=== PATIENT | female | born 1965 | race Caucasian/White ===

== ENCOUNTER → 2023-06-18 13:47 | Outpatient (BNVA) | payer OTHER, SELFPAY | PROVIDERS: Visit Provider Urology ==

== ENCOUNTER → 2023-06-18 18:05 | Outpatient (CLI) | payer OTHER, SELFPAY ==
--- NOTE | 2023-06-18 14:15 | DI.RAD_ITS ---
Exam(s) XR ABDOMEN FLAT PLATE EXAM: 2D digital imaging was performed. CLINICAL HISTORY: Lt ureteral stone progress, N20.1. COMPARISON: CT CT RENAL COLIC from 06/11/2023 TECHNIQUE: Supine views of the abdomen performed. One image was obtained. FINDINGS: BOWEL GAS PATTERN: Nondistended. There is a moderate amount of stool in the colon. CALCIFICATIONS: There is a 1.2 cm calcification to the left of the spine which corresponds to the pro ximal left ureteral calcification. It is at the level of the L3 vertebral body. This is unchanged c ompared to the prior examination. Phleboliths are seen in the pelvis. There is a tiny calcification s seen in the superior pole of the left kidney overlying the left 12th rib. No other urinary tract c alculi are identified. OSSEOUS STRUCTURES: Degenerative changes are seen in the lumbar spine. OTHER FINDINGS: None. IMPRESSION: 1. Moderate amount of stool in the colon. 2. Stable position of the left proximal ureteral stone. DATA REPOSITORY: RADIATION DOSE DELIVERED:
== END ==
PROVIDERS: Visit Provider Urology
DX: N20.1 Calculus of ureter (principal)
CPT/HCPCS: 99204; 74018

== ENCOUNTER → 2023-07-02 11:08 | Outpatient (BNVA) | payer OTHER, SELFPAY | PROVIDERS: Visit Provider Nurse Practitioner Gerontology ==

== ENCOUNTER → 2023-07-02 12:49 | Outpatient (CLI) | payer OTHER, SELFPAY ==
--- NOTE | 2023-07-02 12:00 | DI.RAD_ITS ---
Exam(s) XR ABDOMEN FLAT PLATE EXAM: 2D digital imaging was performed. CLINICAL HISTORY: monitor known ureteral stone N20.1 CALCULUS OF URETER. COMPARISON: CT CT RENAL COLIC from 06/11/2023 CR XR ABDOMEN FLAT PLATE from 06/18/2023 TECHNIQUE: Supine views of the abdomen performed. FINDINGS: BOWEL GAS PATTERN: Nondistended. Moderate to increased quantity of stool. CALCIFICATIONS: Previously noted stone at the upper left ureter no longer visible. Tiny stone visibl e upper pole left kidney. OSSEOUS STRUCTURES: Degenerative changes in the lumbar spine. Old left L3 transverse process fractur e. IMPRESSION: 1. Moderate to increased quantity of stool. 2. Tiny stone upper pole left kidney. Previously noted stone in proximal left ureter no longer visib le. DATA REPOSITORY: RADIATION DOSE DELIVERED:
== END ==
PROVIDERS: Visit Provider Urology
DX: N20.1 Calculus of ureter (principal)
CPT/HCPCS: 81003; 99213; 74018

== ENCOUNTER 2023-07-09 07:07 | Day surgery (SDC) | payer OTHER, SELFPAY ==
[2023-07-09] VITALS (11 sets, daily range): BP systolic 117–138; BP diastolic 44–73; PULSE 59–75; RESP 14–18; TEMP 36.4–36.7; O2SAT 95–98; BMI 20.6
--- NOTE | 2023-07-09 07:15 | DI.RAD_ITS ---
Exam(s) XR RETROGRADE IN OR EXAM: XR RETROGRADE IN OR CLINICAL HISTORY: left ureteral stone TECHNIQUE: 2D and realtime digital imaging was performed. CONTRAST MATERIAL: Refer to procedure report. COMPARISON: CT CT RENAL COLIC from 06/11/2023 FINDINGS: Fluoroscopy was provided for Dr. Burnette during the performance of a retrograde evaluation of the [place] l collecting system. Please refer to the procedure report for complete details. Ka,r=5.5 mGy IMPRESSION: RADIATION DOSE DELIVERED: 0.0 2414.4 0
--- NOTE | 2023-07-09 07:34 | HPE_ITS ---
Date of service: 07/09/23 Time of Service: 07:35 Assessment and Plan Assessment and plan (1) Left ureteral stone: Status: Acute Assessment and plan: We will perform cystoscopy and left retrograde pyelogram to see where her stone is located. We will then plan to do ureteroscopy and holmium laser lithotripsyof her ureteral stone. we will also address the nonobstructing renal stone if technically feasible. History of Present Illness History of Present Illness Chief Complaint: Left ureteral stone Narrative: This is a 58-year-old woman who is referred by the emergency department at [facility]. She was seen in an urgent care setting when she developed moustapha ss hematuria, nausea and some back discomfort. The patient thought she might have a urinary tract infection as she had to UTIs the previous year. The providers in the urgent care recommended she go to the emergency department. During her evaluation, her urine showed no sign of infection. She had a CT scan which is described as showing a 7 mm proximal left ureteral stone with mild hydronephrosis and a nonobstructing 4 mm stone in the left kidney. No stones were described on the right. She was treated conservatively, but has been unable to pass her stone. She has had intermittent symptoms of flank pain and nausea. She had another visit to the ED at [facility] this weekend for worsening pain. She presents now for stone manipulation. Review of Systems Narrative: No fevers or chills No vision change or dysphasia No diabetes or thyroid No shortness of breath, cough or hemoptysis No chest pain or palpitations No nausea, vomiting, hepatitis, ulcers, jaundice, diarrhea or constipation No seizures, strokes or peripheral neuropathy No bleeding disorders or anemia No gout PFSH All Active Problems Left ureteral stone (Acute) Unspecified convulsions (Acute) Medical History Generalized intra-abdominal and pelvic swelling, mass and lump Seizure Syncope and collapse Lateral epicondylitis Candidal vulvovaginitis Surgical History (Updated 07/09/23 @ 07:26 by Pipo Doyle) Hx of tonsillectomy H/O umbilical hernia repair Social History Smoking/Tobacco Use Status: Never Smoking risk assessment performed?: Yes Alcohol Intake: never Drug use: Never Substance use type: does not use Housing: house Do you feel safe at home: Yes Do you feel safe in your relationship?: Yes Meds Allergies and Home Medications Allergies Allergy/AdvReac Type Severity Reaction Status Date / Time lamotrigine Allergy unknown Verified 07/09/23 07:24 Penicillins Allergy unknown Verified 07/09/23 07:24 Home Medications Medication Instructions Recorded Confirmed Type cholecalciferol (vitamin D3) 25 25 mcg PO DAILY 03/11/20 07/09/23 History mcg (1,000 unit) capsule ibuprofen 200 mg capsule (Motrin 400 mg PO Q6H PRN 03/11/20 07/09/23 History IB) levetiracetam 1,000 mg tablet 2,000 mg PO BID 03/11/20 07/09/23 History carbamazepine 100 mg 100 mg PO DAILY 06/13/23 07/09/23 History capsule,extended release [id number] elderberry fruit 350 mg capsule 350 mg PO DAILY 06/18/23 07/09/23 History tamsulosin 0.4 mg capsule (Flomax) 0.4 mg PO DAILY #7 caps 07/03/23 07/09/23 Rx tramadol 50 mg tablet 50 mg PO Q6H PRN pain #12 tabs 07/06/23 07/09/23 Rx Exam Const General: cooperative Neck Neck: supple Resp Effort & Inspection: normal respiratory effort Auscultation: clear to auscultation bilaterally Cardio Rate: regular rate Rhythm: regular rhythm GI Palpation: soft and no masses Neuro General: patient alert, patient awake and patient oriented x3 Results Last Vital Signs Temp 36.7 C 07/09/23 07:26 Pulse 71 07/09/23 07:26 Resp 16 07/09/23 07:26 BP 130/58 L 07/09/23 07:26 Pulse Ox 98 07/09/23 07:26 Time Spent Time spent with Patient: <40 minutes Time was spent: other
--- NOTE | 2023-07-09 07:44 | W.ANESPRE ---
General Info Date of Service Date Performed: 07/09/23 Height: 5 ft 3 in Weight: 52.9 kg Body Mass Index (BMI): 20.6 Surgical Procedure: Operation Date: 07/09/23 09:10 Proposed Procedure Side Surgeon p Cystoscopy/Laser/Retrograde/Ureteroscopy/ Stone Manipulation/ ? Stent Placement Left Abdirashid Burnette MD Pre-Op Diagnosis Post-Op Diagnosis LEFT URETERAL STONE Meds Allergies and Home Medications Allergies Allergy/AdvReac Type Severity Reaction Status Date / Time lamotrigine Allergy unknown Verified 07/09/23 07:24 Penicillins Allergy unknown Verified 07/09/23 07:24 Home Medication Medication Instructions Recorded cholecalciferol (vitamin D3) 25 25 mcg PO DAILY 03/11/20 mcg (1,000 unit) capsule ibuprofen 200 mg capsule (Motrin 400 mg PO Q6H PRN 03/11/20 IB) levetiracetam 1,000 mg tablet 2,000 mg PO BID 03/11/20 carbamazepine 100 mg 100 mg PO DAILY 06/13/23 capsule,extended release [id number] elderberry fruit 350 mg capsule 350 mg PO DAILY 06/18/23 tamsulosin 0.4 mg capsule (Flomax) 0.4 mg PO DAILY #7 caps 07/03/23 tramadol 50 mg tablet 50 mg PO Q6H PRN pain #12 tabs 07/06/23 Current Visit Medications: Current Medications Generic Name Dose Route Start Last Admin Trade Name Freq PRN Reason Stop Dose Admin Ringer's Solution 1,000 mls @ 80 mls/hr 07/09/23 06:00 IV 07/09/23 23:59 INFUSION BHAVANA Ciprofloxacin 400 mg in 200 mls @ 200 mls/hr 07/09/23 06:00 Cipro I.V. IVPB 07/09/23 23:59 PREOP BHAVANA IV Miscellaneous Supplies 1 each 07/09/23 06:00 Iv Access IV 07/09/23 23:59 DIRECTED BHAVANA Sodium Chloride 0 ml 07/09/23 06:00 Normal Saline Flush 10 Ml Syr IV 07/09/23 23:59 PRN PRN Sodium Chloride 0 ml 07/09/23 06:00 Normal Saline 10 Ml Vial IJ 07/09/23 23:59 DIRECTED PRN Sterile Water 0 ml 07/09/23 06:00 Water,Injection,Sterile 10 Ml Vial IJ 07/09/23 23:59 DIRECTED PRN PFSH Active Problems Active Problems: Problem Status Onset Code Left ureteral stone N20.1 Unspecified convulsions R56.9 Medical History Medical History Generalized intra-abdominal and pelvic swelling, mass and lump Seizure Syncope and collapse Lateral epicondylitis Candidal vulvovaginitis Surgical History Surgical History (Updated 07/09/23 @ 07:26 by Pipo Doyle) Hx of tonsillectomy H/O umbilical hernia repair Tobacco Smoking/Tobacco Use Status: Never Alcohol Alcohol Intake: never Substance Use Substance use: Never Substance use type: does not use Vital Signs and Lab Results Vital Signs Most Recent Vital Signs in EMR: Most Recent Vital Signs Temp Pulse Resp BP Pulse Ox 36.7 C 71 16 130/58 L 98 07/09/23 07:26 07/09/23 07:26 07/09/23 07:26 07/09/23 07:26 07/09/23 07:26 Lab Results Blood Type / Crossmatch: No Data to Display Complete Blood Count: No Data to Display Complete Metabolic Panel: No Data to Display Liver Function Panel: No Data to Display Coagulation Panel: No Data to Display Cardiac Panel: No Data to Display Arterial Blood Gas: No Data to Display Venous Blood Gas: No Data to Display Pancreas Panel: No Data to Display Thyroid Panel: No Data to Display Infectious Disease: No Data to Display Blood Cultures: No Data to Display Toxicology Panel: No Data to Display Anesthesia Assessment and Plan Anesthesia History Personal History: No History of Anesthesia Complications Family History: No Family History of Anesthesia Complications Exercise Tolerance Exercise Tolerance: Metabolic Equivalents>4 Pertinent Negatives Pertinent Negatives: No Symptoms of GERD, No Major Cardiovascular Symptoms or Complaints and No Major Pulmonary Symptoms or Complaints Cardiac & Pulmonary Exam Cardiac Exam: Normal S1/S2 Heart Sounds Pulmonary Exam: Clear Bilateral Breath Sounds Implantable Cardiac Device Does patient have a Pacemaker or an ICD?: No Airway Exam Known Difficult Airway: No Mallampati Class: 2 Mouth Opening: Normal (> 3cm) Thyromental Distance: Less than 3 cm Neck Range of Motion: Full ROM Neck Circumference: Normal Teeth Condition: Normal Dentition ASA Classification ASA Score: ASA 2 Emergency Case?: No NPO Status NPO Status: NPO Clears >2 hours, Solids >8 hours Anesthesia Plan Resuscitation Status: Full Code Anesthesia Technique: General Anesthesia Airway Planned: LMA Monitors Used: Standard Monitors
[2023-07-09] MEDS: Lactated Ringers 1,000 ML 80 ML IV (07:50)
[2023-07-09] MEDS: CIPROFLOXACIN 400 MG/200 ML BAG 200 MG IVPB (07:51)
[2023-07-09] MEDS: Omnipaque 300 MG/ML 50 ML BTL (08:47)
[2023-07-09] MEDS: Lidocaine 2% Jelly 11 ML SYR (08:47)
--- NOTE | 2023-07-09 09:15 | W.PM.DSUDISC ---
Date of service: 07/09/23 Time of Service: 09:15 Discharge Plan Disposition Patient Disposition: Home Discharge Details Reason For Visit: ureteroscopy Attending Provider: Abdirashid Burnette Primary Care Provider: Maximo Brunner Home Meds and New Rx's Prescriptions: No Action elderberry fruit 350 mg capsule 350 mg PO DAILY tamsulosin [Flomax] 0.4 mg capsule 0.4 mg PO DAILY Qty: 7 0RF tramadol 50 mg tablet 50 mg PO Q6H PRN (Reason: pain) Qty: 12 0RF Rx Instructions: may take along with NSAIDS/Tylenol levetiracetam 1,000 mg tablet 2,000 mg PO BID ibuprofen [Motrin IB] 200 mg capsule 400 mg PO Q6H PRN cholecalciferol (vitamin D3) 25 mcg (1,000 unit) capsule 25 mcg PO DAILY carbamazepine 100 mg capsule, ER multiphase 12 hr 100 mg PO DAILY Discharge Instructions Additional Instructions: no need to strain urine You have a stent in the left ureter and there is a string attached to the stent. While the stent is in place, it is not unusual to see blood in the urine, have discomfort when you urinate and urinate more frequently. followup late this week/early next week for stent removal followup appt 6 to 8 weeks with renal US to be done in my office Discharge Orders Discharge Orders: Discharge Order (Routine); Ordered 07/09/23 Ordered By: Abdirashid Burnette DS: Diagnosis Discharge Diagnosis (1) Left ureteral stone: Status: Acute
--- NOTE | 2023-07-09 09:19 | W.PM.OP ---
Date of service: 07/09/23 Time of Service: 09:19 Operative Note Operative Note DATE OF PROCEDURE: 07/09/23 PRE-OP DIAGNOSIS: Left ureteral stone POST-OP DIAGNOSIS: same left renal stone PROCEDURE: cystoscopy, left retrograde pyelogram, left semirigid ureteroscopy with ureteral stone extraction, left flexible ureteroscopy with renal stone extraction, insert left ureteral stent SURGEON: Abdirashid Burnette ANESTHESIA TYPE: Local By Surgeon and General LMA/ETT Refer to Anesthesia Record ESTIMATED BLOOD LOSS: 5 PATHOLOGY: other (left ureteral and left renal stone for chemical analysis) COMPLICATIONS: None Patient was transported to: PACU Patient's condition: stable Implants: 6 Romanian by 22 to 30 cm left ureteral stent Indications: This is a 58-year-old woman who presented to an outside emergency department with left-sided renal colic. She was found to have a 7 mm left proximal ureteral stone. She was treated with conservative management but was unable to pass her stone. In fact, she had recurrent episodes of renal colic in the past week. She presents for stone manipulation. Findings: left ureteral stone had migrated distally in ureter left renal stone in upper pole calyx Procedure Description: The patient was given preoperative IV antibiotics and brought to the operating room on 07/09/2023. After successful induction of general anesthesia, she was placed in the dorsal lithotomy position. Her genitalia was prepped and draped sterilely. 2% Xylocaine jelly was instilled into the urethra. A 22 Romanian rigid cystoscope was passed through the urethra into the bladder. The bladder was inspected with a 30 degree lens. Both ureteral orifices appeared normal with no blood coming from either side. The left orifice was cannulated with a 5 Romanian access catheter. Retrograde pyelogram was obtained by injecting Omnipaque through the access catheter under fluoroscopic guidance. There appeared to be a filling defect in the left distal ureter below the pelvic brim. I then passed a guidewire through the lumen of the access catheter and advanced the wire up the remainder of the ureter. The access catheter was removed leaving the wire in place. The semirigid ureteroscope was then passed through the urethra and advanced up the left ureter. The distal ureteral stone was visualized and grasped in a Jen stone basket. The stone was then removed in its entirety. Based on her previous imaging studies, we already knew that she had another stone up in the left kidney. We passed the dual-lumen catheter over her indwelling wire and positioned a second wire. We chose one of the wires as a working wire and the other as a safety wire. We advanced a ureteral access sheath over the working wire leaving the safety wire in place. The flexible ureteroscope was then passed through the lumen of the access sheath and each of the calyces were inspected. A small stone was seen in the upper pole calyx. The stone was grasped in a 0 tip stone basket and removed in its entirety. Both stone fragments were sent to pathology for chemical analysis. The ureteral access sheath was removed. We then passed a 6 Romanian stent over the safety wire. The proximal end of the stent was curled in the renal pelvis and the distal end of the stent was curled in the bladder. The positioning of the stent was confirmed both fluoroscopically and cystoscopically. We left a safety string attached to the end of the stent. The string was brought through the patient's urethra and tucked into the vaginal cavity. The patient tolerated this procedure well with no complications. She was taken to the recovery room in stable condition.
[2023-07-09] MEDS: fentaNYL 100 MCG/2 ML VIAL IVP ×2 (09:34→09:40)
[2023-07-09] MEDS: Phenazopyridine 200 MG TAB PO (09:48)
[2023-07-09] MEDS: oxyCODONE 5 MG TAB PO (10:54)
--- NOTE | 2023-07-09 11:01 | W.ANESPOSTOP ---
Postoperative Evaluation Date, Time and Location Date Performed: 07/09/23 Time Performed: 11:01 Patient Location: Day Surgery Unit Vital Signs Most Recent Imported Vital Signs: Most Recent Vital Signs Temp Pulse Resp BP Pulse Ox 36.5 C 72 16 132/60 96 07/09/23 10:41 07/09/23 10:41 07/09/23 10:41 07/09/23 10:41 07/09/23 10:41 Pain Score Most Recent Pain Score: Most Recent Pain Score Pain Level 4 07/09/23 10:41 Assessment Mental Status: Awake (Alert & Oriented to Patient Baseline) Airway and Respiratory Function: Patent airway with normal (patient baseline) respiratory exam Cardiovascular Function: Hemodynamically Stable Hydration Status: Adequately Hydrated Nausea & Vomiting: No Nausea or Vomiting Pain: Pain is tolerable per patient Peripheral Nerve Block: Patient did not receive a nerve block
[2023-07-14 16:04] LABS: Source: Left Kidney
== END 2023-07-09 11:10 | disposition home or self-care (01) ==
PROVIDERS: PCP Registered Nurse; Visit Provider Urology
PROC: (CPT 52352; principal; 2023-07-09 09:00)
DX: N20.1 Calculus of ureter (principal)
CPT/HCPCS: 52352; 52332; 74420; 82365; J0744; J1100; J1885; J2001; J2405; J2704; J3010; Q9967

== ENCOUNTER → 2023-07-26 07:43 | Outpatient (BNVA) | payer OTHER, SELFPAY | PROVIDERS: PCP Registered Nurse; Referring Provider Registered Nurse; Visit Provider Nurse Practitioner Gerontology | DX: N20.1 Calculus of ureter (principal) | CPT/HCPCS: 99212 ==

== ENCOUNTER → 2023-09-18 10:43 | Outpatient (BNVA) | payer OTHER, SELFPAY | PROVIDERS: PCP Registered Nurse; Referring Provider Registered Nurse; Visit Provider Urology | DX: N20.1 Calculus of ureter (principal) | CPT/HCPCS: 76775 ==